=== PATIENT | male | born 1935 | race Caucasian/White ===

== ENCOUNTER 2022-08-22 15:01 | Outpatient (REF) | payer MEDICARE, SELFPAY ==
[2022-08-22 16:39] LABS: Vitamin B12 492 pg/mL (200-900)
== END 2022-08-22 15:02 | disposition home or self-care (01) ==
LOC: HO.LAB 15:01
PROVIDERS: PCP Internal Medicine; Visit Provider Psychiatry & Neurology Neurology
DX: G30.9 Alzheimer's disease, unspecified (principal)
CPT/HCPCS: 36415; 82607